=== PATIENT | male | born 1980 | race Caucasian/White ===

== ENCOUNTER 2016-10-22 06:39 | Emergency (ER) | payer MEDICAID ==
[~2016-10-22] VITALS: Ht 193 cm; Wt 68.0 kg
[2016-10-22 06:41] VITALS: BP 124/74; PULSE 98; RESP 16; TEMP 98.1; O2SAT 97
--- NOTE | 2016-10-22 07:35 | PD ---
HPI Chief Complaint: ENT Complaint Time Seen by Provider: 07:32 Travel History International Travel<30 days: No Contact w/Intl Traveler<30days: No Traveled to known affect area: No History of Present Illness HPI 36-year-old male presents to the emergency department with complaint of left ear pain since 2 AM this morning. Denies fever, chills, nausea, vomiting. Reports the sensation is water in his ears. Has had nasal congestion for the past few days. Denies sore throat, cough. No one else with similar symptoms. Has not taken any medications or tried any treatments to relieve his symptoms. No known relieving or aggravating factors. No known allergies. Denies significant past medical history. Reports tobacco use daily. No other modifying factors or associated signs and symptoms. PFSH Past Medical History Bipolar Disorder: Yes Diminished Hearing: No Psychiatric: Yes (SOCIAL ANXIETY DISORDER) Immunizations Current: Yes Schizophrenia: Yes Past Surgical History Appendectomy: Yes Social History Alcohol Use: Yes (6-8 BEERS DAILY) Tobacco Use: Yes (1 PPD) Substance Use: Yes Allergies-Medications (Allergen,Severity, Reaction): Coded Allergies: No Known Allergies (Unverified , 10/22/16) Reported Meds & Prescriptions Reported Meds & Active Scripts Active Ciprofloxacin (Ciprofloxacin HCl) 500 Mg Tab 500 Mg PO BID 10 Days Ibuprofen 800 Mg Tab 800 Mg PO Q6HR PRN Review of Systems Except as stated in HPI: all other systems reviewed are Neg Physical Exam Narrative GENERAL: Well-nourished, well-developed male patient, in no acute distress; disheveled SKIN: Warm and dry. No rash. HEAD: Atraumatic. Normocephalic. EYES: Pupils equal and round. No scleral icterus. No injection or drainage. ENT: Mucosa pink and moist. EARS: Bilateral pinnae and external canals appear within normal limits. Right tympanic membranes without erythema, dullness or perforation. Unable to visualize left tympanic membrane secondary to foreign body or cerumen impaction. NECK: Trachea midline. No lymphadenopathy. CARDIOVASCULAR: Regular rate. RESPIRATORY: No accessory muscle use. GASTROINTESTINAL: Flat. MUSCULOSKELETAL: No obvious deformities. No clubbing. No cyanosis. No edema. NEUROLOGICAL: Awake and alert. Oriented 3. No obvious cranial nerve deficits. Motor grossly within normal limits. Normal speech. Moves all extremities. 5/5 strength to all extremities. PSYCHIATRIC: Appropriate mood and affect; insight and judgment normal. Data Data Last Documented VS Vital Signs Date Time Temp Pulse Resp B/P Pulse Ox O2 Delivery O2 Flow Rate FiO2 10/22/16 06:41 98.1 98 16 124/74 97 Room Air Orders Ear Irrigation (10/22/16 07:31) Ibuprofen (Motrin) (10/22/16 08:15) MDM Medical Decision Making Medical Screen Exam Complete: Yes Emergency Medical Condition: Yes Medical Record Reviewed: Yes Differential Diagnosis Otitis media, ear foreign body, cerumen impaction Narrative Course 36-year-old male physical exam consistent with either cerumen impaction, blood filled sac, or foreign body to the left ear. Ear irrigation ordered. 804: Left ear irrigation performed, by RN and myself, using warm water and syringe. Bright red drainage came from the ear canal upon irrigation. Left tympanic membrane appears to be ruptured. Ibuprofen administered in the ER. Ofloxacin eardrops and ibuprofen prescribed for home. Instructed patient to follow up with ENT. Patient verbalizes understanding and agreement with treatment plan. Patient is medically cleared and stable for discharge. Discussed reasons to return to the emergency department. Instructed patient to follow up with primary care provider. Patient agrees with treatment plan. The patients vital signs are stable and the patient is stable for outpatient follow- up and treatment. Patient discharged home, stable and in no acute distress. Procedures Procedure Narrative EAR IRRIGATION: Left ear was irrigated with warm water and syringe. Curette was used to loosen impaction. Patient tolerated well. Diagnosis Primary Impression: Ruptured tympanic membrane Qualified Code: H72.92 - Ruptured tympanic membrane, left Referrals: Ear / Nose / Throat Specialist Primary Care Physician Patient Instructions: General Instructions Departure Forms: Tests/Procedures, Work Release Enter return to work date: Oct 23, 2016 Additional Instructions: Take antibiotics as prescribed and complete full course Ibuprofen or Tylenol as directed and as needed to reduce pain and fever Avoid getting water in the ears Do not put anything in the ears; including Q-tips Follow-up with primary care provider Follow-up with ear nose throat specialist Return to the emergency department immediately with worsening of symptoms Med/Other Pt SpecificInfo: Prescription(s) given Scripts Ciprofloxacin 500 Mg [id number] Mg PO BID 10 Days Ref 0 Prov:Evita Arita PA[employer] DIPPER 10/22/16 Ibuprofen 800 Mg Inx505 Mg PO Q6HR PRN (PAIN) #30 TAB Ref 0 Prov:Evita Arita 10/22/16 Disposition: 01 DISCHARGE HOME Condition: Stable Evita Arita Oct 22, 2016 07:35
[2016-10-22] MEDS ORDERED: OFLO0.3D9 LEFT EAR (08:06)
[2016-10-22] MEDS ORDERED: IBUP800T23 PO (08:06)
[2016-10-22] MEDS ORDERED: AMOX500C PO (08:15)
[2016-10-22] MEDS ORDERED: IBUPROFEN 800 MG TAB PO ONE (08:15)
[2016-10-22] MEDS ORDERED: CIPR500T2 PO (08:17)
== END 2016-10-22 08:23 | disposition home or self-care (01) ==
LOC: NEPB 06:39
DX: H72.92 Unspecified perforation of tympanic membrane, left ear (principal); H61.22 Impacted cerumen, left ear; F17.210 Nicotine dependence, cigarettes, uncomplicated
CPT/HCPCS: 69210

== ENCOUNTER 2016-11-15 06:03 | Emergency (ER) | payer MEDICAID ==
[~2016-11-15] VITALS: Ht 180.3 cm; Wt 68.0 kg
[~2016-11-15 06:03] MED LIST: CIPR500T2 PO; IBUP800T23 PO
[2016-11-15 06:05] VITALS: BP 134/74; PULSE 104; RESP 18; TEMP 97.9; O2SAT 96
[2016-11-15 06:19] VITALS: BP 129/74; PULSE 84; RESP 20; O2SAT 98
[2016-11-15] MEDS ORDERED: ONDANSETRON HCL 4 MG/2 ML VIAL IV ONE (07:15)
[2016-11-15] MEDS ORDERED: SODIUM CHLOR 0.9% 1000 ML INJ 1,000 ML IV ONE (07:15)
[2016-11-15] MEDS ORDERED: THIAMINE INJ 100 MG in SODIUM CHLORIDE 0.9% INJ 100 ML IV ONE (07:15)
--- NOTE | 2016-11-15 07:20 | PD ---
HPI Chief Complaint: Alcohol/Drug Intoxication Time Seen by Provider: 06:35 Travel History International Travel<30 days: No Contact w/Intl Traveler<30days: No Traveled to known affect area: No History of Present Illness HPI The patient is a 36 year old male who presents to the [facility] emergency department with a history of alcohol abuse and 16 years of age. The patient reports that he normally drinks between 12 and 16 beers daily. He reports that whenever he does not drink alcohol and he does get tremulous. He has never tried to quit drinking previously. He denies ever participating in a detoxification program. The patient reports that he would like to quit drinking at this time. The patient reports that he last drank alcohol in 6 AM. He reports that he ran out of alcohol and this is why he stopped. The patient reports feeling tremulous. He denies having any vomiting, however he has had nausea. He denies having any diarrhea. He denies ever having a seizure related to alcohol withdrawal. The patient denies any suicidal or homicidal ideation. The patient denies recent fevers, cough, congestion, neck pain, chest pain, chest pressure, shortness of breath, abdominal pain, urinary symptoms, or other neurologic symptoms. [facility] Past Medical History Narrative Medical The patient's past medical history is significant for alcohol abuse, depression. Bipolar Disorder: Yes Diminished Hearing: No Medical other: Yes (ear infection) Psychiatric: Yes (SOCIAL ANXIETY DISORDER) Immunizations Current: Yes Schizophrenia: Yes Past Surgical History Narrative Surgical The patient's past surgical history is significant for an appendectomy. Appendectomy: Yes Social History Alcohol Use: Yes (about 12 BEERS DAILY) Tobacco Use: Yes (1 PPD) Substance Use: Yes (marijuana) Allergies-Medications (Allergen,Severity, Reaction): Coded Allergies: No Known Allergies (Unverified , 11/15/16) Reported Meds & Prescriptions Reported Meds & Active Scripts Active Review of Systems Except as stated in HPI: all other systems reviewed are Neg General / Constitutional: No: Fever Eyes: No: Visual changes HENT: No: Headaches Cardiovascular: No: Chest Pain or Discomfort Respiratory: No: Shortness of Breath Gastrointestinal: No: Abdominal Pain Genitourinary: No: Dysuria Musculoskeletal: No: Pain Skin: No Rash Neurologic: Positive: Tremor (tremulousness), No: Weakness, Focal Abnormalities, Change in Mentation, Slurred Speech, Sensory Disturbance Psychiatric: Positive: Substance Abuse, No: Depression Endocrine: No: Polydipsia Hematologic/Lymphatic: No: Easy Bruising Physical Exam Narrative General: The patient is a well-developed well-nourished male in no acute distress. Head and Neck exam: Head is normocephalic atraumatic. Eyes: EOMI, pupils are equal round and reactive to light. Nose: Midline septum with pink mucous membranes Mouth: Dentition unremarkable. Moist mucus membranes. Posterior oropharynx is not erythematous. No tonsillar hypertrophy. Uvula midline. Airway patent. Neck: No palpable lymphadenopathy. No nuchal rigidity. No thyromegaly. Cardiovascular: Regular rate and rhythm without murmurs, gallops, or rubs. Lungs: Clear to auscultation bilaterally. No wheezes, rhonchi, or rales. Abdomen: Soft, without tenderness to palpation in all 4 quadrants of the abdomen. No guarding, rebound, or rigidity. Normal bowel sounds are audible. No tenderness on palpation of McBurney's point. Negative Morales's sign. Extremities: No clubbing, cyanosis, or edema. Back: No spinous process tenderness to palpation. No costovertebral angle tenderness to palpation. Neurologic Exam: Grossly nonfocal. Slightly tremulous on examination. Skin Exam: No rash noted. Intact skin that is warm and dry. Data Data Last Documented VS Vital Signs Date Time Temp Pulse Resp B/P Pulse Ox O2 Delivery O2 Flow Rate FiO2 11/15/16 06:19 84 20 129/74 98 Room Air 11/15/16 06:05 97.9 Orders Complete Blood Count With Diff (11/15/16 07:04) Basic Metabolic Panel (Bmp) (11/15/16 07:04) Magnesium (Mg) (11/15/16 07:04) Iv Access Insert/Monitor (11/15/16 07:04) Ecg Monitoring (11/15/16 07:04) Oximetry (11/15/16 07:04) Sodium Chlor 0.9% 1000 Ml Inj (Ns 1000 M (11/15/16 07:15) Ondansetron Inj (Zofran Inj) (11/15/16 07:15) Thiamine Inj (Thiamine Inj) (11/15/16 07:15) Chlordiazepoxide (Librium) (11/15/16 07:15) [facility] Medical Decision Making Medical Screen Exam Complete: Yes Emergency Medical Condition: Yes Medical Record Reviewed: Yes Differential Diagnosis alcohol withdrawal, versus other substance withdrawal syndrome, versus electrolyte abnormality Narrative Course During the course of the patients emergency department visit, the patients history, examination, and differential diagnosis were reviewed with the patient. The patient had IV access obtained and blood work sent for analysis. The patient's face on a satellite project site monitor with oximetry and blood pressure monitoring. The [facility] was called regarding this patient's case. They reported that there are no male beds available at this time for detox. The patient was provided normal saline 1 L IV fluid bolus, thiamine 100 mg IV, Zofran 4 mg IV, Librium 50 mg by mouth 1. The patients laboratory studies are pending at the conclusion of my shift. The patient's case was checked out to the oncoming physician to disposition after the patient's laboratory studies are resulted. I anticipate that the patient will be able to be discharged home. Diagnosis Primary Impression: Alcohol abuse Juani Sandoval MD Nov 15, 2016 07:20
[2016-11-15 07:58] LABS: AUTOMATED NEUTROPHIL # 9.2 TH/MM3 (1.8-7.7); BASOPHIL # 0.3 TH/MM3 (0-0.2); BASOPHIL % 2.2 % (0.0-2.0); EOSINOPHIL % 0.4 % (0.0-4.0); HEMATOCRIT 40.5 % (39.0-51.0); HEMO FLAGS DIFF FINAL; LYMPH % 7.8 % (9.0-44.0); LYMPHOCYTE # 0.9 TH/MM3 (1.0-4.8); MEAN CORPUSCULAR HEMOGLOBIN 35.1 PG (27.0-34.0); MEAN CORPUSCULAR HGB CONC 35.1 % (32.0-36.0); MONO % 9.7 % (0.0-8.0); NEUT % 79.9 % (16.0-70.0); PLATELET COUNT 213 TH/MM3 (150-450); RED BLOOD COUNT 4.05 MIL/MM3 (4.50-5.90); RED CELL DISTRIBUTION WIDTH 12.8 % (11.6-17.2); WHITE BLOOD COUNT 11.4 TH/MM3 (4.0-11.0)
[2016-11-15 08:40] LABS: BICARBONATE 26.6 MEQ/L (21.0-32.0); MAGNESIUM 1.8 MG/DL (1.5-2.5); POTASSIUM 3.7 MEQ/L (3.5-5.1)
--- NOTE | 2016-11-15 09:47 | PD ---
Physical Exam Date Seen by Provider: Nov 15, 2016 Time Seen by Provider: 09:45 Narrative 36-year-old male came to the emergency room for alcohol detox. He is a chronic alcoholic and was seen by the previous ER physician. Please refer to her notes. There were labs ordered which was signed out to me to be followed up. Patient was given Librium by mouth and the plan was that if all the blood test results were within normal limit he needs to go to [facility] for the detox. Was explained to the patient and he is aware of this plan. Blood test results of back and within acceptable limits. I'll discharge him home at this point. Data Data Last Documented VS Vital Signs Date Time Temp Pulse Resp B/P Pulse Ox O2 Delivery O2 Flow Rate FiO2 11/15/16 13:50 Room Air 11/15/16 06:19 84 20 129/74 98 11/15/16 06:05 97.9 Orders Complete Blood Count With Diff (11/15/16 07:04) Basic Metabolic Panel (Bmp) (11/15/16 07:04) Magnesium (Mg) (11/15/16 07:04) Iv Access Insert/Monitor (11/15/16 07:04) Ecg Monitoring (11/15/16 07:04) Oximetry (11/15/16 07:04) Sodium Chlor 0.9% 1000 Ml Inj (Ns 1000 M (11/15/16 07:15) Ondansetron Inj (Zofran Inj) (11/15/16 07:15) Thiamine Inj (Thiamine Inj) (11/15/16 07:15) Chlordiazepoxide (Librium) (11/15/16 07:15) Labs Laboratory Tests Test 11/15/16 07:20 White Blood Count 11.4 TH/MM3 Red Blood Count 4.05 MIL/MM3 Hemoglobin 14.2 GM/DL Hematocrit 40.5 % Mean Corpuscular Volume 100.0 FL Mean Corpuscular Hemoglobin 35.1 PG Mean Corpuscular Hemoglobin 35.1 % Concent Red Cell Distribution Width 12.8 % Platelet Count 213 TH/MM3 Mean Platelet Volume 8.2 FL Neutrophils (%) (Auto) 79.9 % Lymphocytes (%) (Auto) 7.8 % Monocytes (%) (Auto) 9.7 % Eosinophils (%) (Auto) 0.4 % Basophils (%) (Auto) 2.2 % Neutrophils # (Auto) 9.2 TH/MM3 Lymphocytes # (Auto) 0.9 TH/MM3 Monocytes # (Auto) 1.1 TH/MM3 Eosinophils # (Auto) 0.0 TH/MM3 Basophils # (Auto) 0.3 TH/MM3 CBC Comment DIFF FINAL Differential Comment Sodium Level 138 MEQ/L Potassium Level 3.7 MEQ/L Chloride Level 100 MEQ/L Carbon Dioxide Level 26.6 MEQ/L Anion Gap 11 MEQ/L Blood Urea Nitrogen 9 MG/DL Creatinine 0.74 MG/DL Estimat Glomerular Filtration 120 ML/MIN Rate Random Glucose 80 MG/DL Calcium Level 8.7 MG/DL Magnesium Level 1.8 MG/DL MDM Supervised Visit with AIDEE: Yes Diagnosis Primary Impression: Alcohol abuse Additional Impression: Chronic alcohol abuse Referrals: Primary Care Physician 3 days Additional Instruction: Please go to [facility] for request for alcohol rehabilitation. Return to the ER if the condition worsens or any other new concerns. Med/Other Pt SpecificInfo: No Change to Meds Disposition: 01 DISCHARGE HOME Condition: Stable Darren Hernandez MD Nov 15, 2016 09:47
== END 2016-11-15 13:50 | disposition home or self-care (01) ==
LOC: NEPC 06:03
DX: F10.10 Alcohol abuse, uncomplicated (principal); F32.9 Major depressive disorder, single episode, unspecified
CPT/HCPCS: 80048; 83735; 85025; 96365; 96375; 99285; J2405; J3411; J7030